=== PATIENT | female | born 1990 | race Caucasian/White ===

== ENCOUNTER 2016-11-12 09:54 | Emergency (ER) | payer BC ==
[2016-11-12 11:23] VITALS: BP 100/62
--- NOTE | 2016-11-12 11:48 | UC ---
Back Pain HPI - History of Current Complaint Chief Complaint: UCBackPain Stated Complaint: BACK PAIN Time Seen by Provider: 11/12/16 11:40 Hx Last Menstrual Period: 07/09/14 - Allergies/Home Medications Allergies/Adverse Reactions: Allergies Allergy/AdvReac Type Severity Reaction Status Date / Time No Known Allergies Allergy Verified 11/12/16 11:18 PMH/Surg Hx/FS Hx/Imm Hx - Family History Known Family History: Positive: None Family History: negative Crohn's and ulerative colitis - Social History Alcohol Use: Occasionally Substance Use Type: None Smoking Status (MU): Never Smoked Tobacco Physical Exam Vital Signs: Initial Vital Signs Temp 97.9 F 11/12/16 11:19 Pulse 50 11/12/16 11:19 Resp 16 11/12/16 11:19 BP 100/62 11/12/16 11:19 Pulse Ox 100 11/12/16 11:19
== END 2016-11-12 11:59 | disposition home or self-care (01) ==
LOC: UCEAST 09:54
DX: M54.9 Dorsalgia, unspecified (principal); Z32.02 Encounter for pregnancy test, result negative
CPT/HCPCS: 81003; 84702; 87086; 99212; G0463